=== PATIENT | male | born 1980 | race Caucasian/White ===

== ENCOUNTER 2017-10-25 00:15 | Emergency (ER) | payer OTHER ==
[~2017-10-25] VITALS: Ht 172.7 cm; Wt 97.5 kg
[~2017-10-25 00:15] MED LIST: HYDROXYZINE HCL25 M2 PO; PEPCID20 M1 PO; PREDNISONE20 M1 PO
[2017-10-25] MEDS ORDERED: PAXIL40 M1 PO (01:21)
--- NOTE | 2017-10-25 01:22 | ED PSYCHIATRIC COMPLAINT ---
History of Present Illness General Chief Complaint: Psychiatric Related Complaint Stated Complaint: DEPRESSION Source: patient, old records Exam Limitations: no limitations Vital Signs & Intake/Output Vital Signs & Intake/Output Vital Signs Date Time Temp Pulse Resp B/P B/P Pulse O2 O2 Flow FiO2 Mean Ox Delivery Rate 10/25 0055 98.3 99 18 122/79 95 Room Air Allergies Coded Allergies: No Known Allergies (10/25/17) Reconcile Medications Famotidine (Pepcid) 20 MG TABLET 1 TAB PO BID poison eduardo Hydroxyzine Hydrochloride (Atarax) 25 MG TABLET 1-2 TAB PO Q6P PRN itchy rash Paroxetine HCl (Paxil) 40 MG TABLET 1 TAB PO DAILY depression Prednisone 20 MG TABLET 1 TAB PO BID poison eduardo Triage Note: TRIAGE: PATIENT TO ER FROM HOME REPORTING "WITHDRAWING FROM PAXIL, WAS ON 40MG, LAST DOSE WAS APPROX 7 DAYS AGO." REQUESTING "SOME OTHER MED TO HELP ME GET THROUGH THE NIGHT." PATIENT STATES "I'M GOING TO SEE MY DOCTOR TOMORROW, I HAD JUST RUN OUT OF IT AND DIDN'T HAVE TIME TO MAKE AN APPT." Triage Nurses Notes Reviewed? yes Onset: Last week Duration: day(s):, constant, continues in ED, getting worse Timing: recent history Severity: severe Associated Symptoms: anxiety, impaired concentration, insomnia HPI: 1 week prior to admission the patient ran out of his Paxil. He complains of having increased depression and anxiety irritability insomnia difficulty concentrating. He denies fever chills nausea vomiting diarrhea abdominal pain chest pain shortness breath headache dysuria rash bleeding Past History Travel History Traveled to [place] past 21 day No Medical History Any Pertinent Medical History? see below for history Neurological: NONE EENT: NONE Cardiovascular: NONE Respiratory: NONE Gastrointestinal: NONE Hepatic: NONE Renal: NONE Musculoskeletal: NONE Psychiatric: anxiety, depression Endocrine: NONE Blood Disorders: NONE Cancer(s): NONE FRANCHISE BROKER/Reproductive: NONE Surgical History Surgical History: non-contributory Psychosocial History What is your primary language Japanese Tobacco Use: Quit >30 days ago Family History Hx Contributory? No Review of Systems Review of Systems Constitutional: Reports: no symptoms. EENTM: Reports: no symptoms. Respiratory: Reports: no symptoms. Cardiovascular: Reports: no symptoms. GI: Reports: no symptoms. Genitourinary: Reports: no symptoms. Musculoskeletal: Reports: no symptoms. Skin: Reports: no symptoms. Neurological/Psychological: Reports: see HPI, anxiety, depressed, emotional problems. Hematologic/Endocrine: Reports: no symptoms. Immunologic/Allergic: Reports: no symptoms. All Other Systems: Reviewed and Negative Physical Exam Physical Exam General Appearance: well developed/nourished, alert, awake, anxious, mild distress Head: atraumatic, normal appearance Eyes: Bilateral: normal appearance, PERRL, EOMI. Ears, Nose, Throat: normal pharynx, normal ENT inspection, hearing grossly normal Neck: normal inspection, supple, full range of motion Respiratory: normal breath sounds, chest non-tender, no respiratory distress, quiet respiration, lungs clear Cardiovascular: regular rate/rhythm, normal peripheral pulses, norml femoral pulses equa Gastrointestinal: normal bowel sounds, soft, non-tender, no organomegaly Extremities: normal range of motion, no ligament instability Neurological/Psychiatric: no motor/sensory deficits, awake, agitated, alert, anxious, maintenance inspector II-XII nml as tested, oriented x 3 Appearance/Memory/Insight: appropriate insight Behavoir/Eye Contact/Speech: cooperative, normal speech Thoughts/Hallucinations: no apparent hallucination Skin: intact, normal color, warm/dry SAD PERSONS Done? patient not suicidal Progress Differential Diagnosis: drug withdrawal Plan of Care: Current Medications Sig/Baudilio Start time Last Medication Dose Stop Time Status Admin Paroxetine HCl 40 MG ONCE ONE 10/25 129 UNVr (Paxil) 10/25 130 Zolpidem Tartrate 10 MG ONCE ONE 10/25 129 UNVr (Ambien) 10/25 130 Departure Departure Time of Disposition: 119 Disposition: HOME OR SELF CARE Condition: Stable Clinical Impression Primary Impression: Paxil withdrawal syndrome Referrals: Patient Has No Primary Care Dr (PCP/Family) Departure Forms: Customer Survey General Discharge Information Prescriptions: Current Visit Scripts Paroxetine HCl (Paxil) 1 TAB PO DAILY #30 TAB
[2017-10-25 01:37] VITALS: BP 134/83
== END 2017-10-25 01:36 ==
LOC: ERH 00:15
DX: F19.239 Other psychoactive substance dependence with withdrawal, unspecified (principal)